=== PATIENT | male | born 1980 | race African-American/Black ===

== ENCOUNTER 2017-10-11 03:46 | Emergency (ER) | payer MEDICAID ==
[~2017-10-11 03:46] MED LIST: CEPH-571 PO; GUAI120015 PO; ONDA4TAB6 PO
== END 2017-10-11 04:18 | disposition left against medical advice (07) ==
LOC: ER 03:46
DX: Z53.21 Procedure and treatment not carried out due to patient leaving prior to being seen by health care provider (principal)

== ENCOUNTER 2019-11-12 08:45 | Emergency (ER) | payer SELFPAY ==
[~2019-11-12] VITALS: Ht 167.6 cm; Wt 97.2 kg
[2019-11-12 08:52] VITALS: BP 142/94
[2019-11-12 09:35] LABS: CLARITY,URINE CLEAR (Clear); COLOR,URINE YELLOW (Yellow); GLUCOSE, URINE NEGATIVE (Neg); KETONES,URINE NEGATIVE (Neg); LEUKOCYTE ESTERASE ,URINE NEGATIVE (Neg); NITRITES, URINE NEGATIVE (Neg); OCCULT BLOOD,URINE NEGATIVE (Neg); PH,URINE 5.5 (4.8-8.0); PROTEIN,URINE NEGATIVE (Neg); UA COLLECTION TYPE VOIDED; UROBILINOGEN,URINE 0.2 E.U/dL (0.2-1.0)
[2019-11-12] MEDS ORDERED: azithromycin 250mg tablet PO ONE (09:50)
[2019-11-12] MEDS ORDERED: CefTRIAXone 250MG IM Kit w/LIDOcaine IM ONE (09:50)
[2019-11-12] MEDS ORDERED: FLO0.4C PO (10:18)
== END 2019-11-12 10:32 | disposition left against medical advice (07) ==
LOC: ER 08:45
DX: R33.9 Retention of urine, unspecified (principal); R30.0 Dysuria; Z72.89 Other problems related to lifestyle; Z59.0 Homelessness; Z79.899 Other long term (current) drug therapy
CPT/HCPCS: 36415; 81003; 87491; 99284

== ENCOUNTER 2019-11-28 08:22 | Emergency (ER) | payer MEDICAID ==
[~2019-11-28] VITALS: Ht 167.6 cm; Wt 90.0 kg
[~2019-11-28 08:22] MED LIST changes: +FLO0.4C PO
[2019-11-28 08:38] VITALS: BP 146/93
--- NOTE | 2019-11-28 09:49 | NUR ---
BLADDER SCAN SHOWED 237ML RETAINED.
[2019-11-28 09:54] LABS: BASOPHILS % (AUTO) 0.6 % (0-1); EOSINOPHILS # (AUTO) 0.1 X10'3 (0-0.9); EOSINOPHILS % (AUTO) 1.2 % (0-6); HEMATOCRIT 40.9 % (42.0-52.0); HEMOGLOBIN 13.8 g/dl (14.0-17.9); LYMPHOCYTES # (AUTO) 1.4 X10'3 (1.1-4.8); LYMPHOCYTES % (AUTO) 29.8 % (21-51); MEAN CORPUSCULAR HEMOGLOBIN 31.6 PG (27.0-31.0); MEAN CORPUSCULAR HGB CONC 33.8 g/dL (33.0-36.5); MEAN CORPUSCULAR VOLUME 93.5 FL (78-98); MEAN PLATELET VOLUME 8.4 FL (7.4-10.4); MONOCYTES # (AUTO) 0.5 X10'3 (0-0.9); MONOCYTES % (AUTO) 11.2 % (2-12); NEUTROPHILS # (AUTO) 2.8 X10'3 (1.8-7.7); NEUTROPHILS % (AUTO) 57.2 % (42-75); PLATELET COUNT 252 X10'3 (140-440); RED BLOOD COUNT 4.38 X10'6 (4.70-6.10); RED CELL DISTRIBUTION WIDTH 12.7 % (11.5-14.5); WHITE BLOOD COUNT 4.8 X10'3 (4.5-11.0)
[2019-11-28 10:02] LABS: ALBUMIN 3.7 G/DL (3.4-5.0); ANION GAP 6 (8-16); BLOOD UREA NITROGEN 12 MG/DL (7-18); BUN/CREATININE RATIO 9.9 (5.4-32.0); CALCIUM 9.2 MG/DL (8.5-10.1); CHLORIDE 107 MMOL/L (99-107); CREATININE 1.21 MG/DL (0.60-1.10); GLUCOSE 101 MG/DL (70-104); POTASSIUM 3.4 MMOL/L (3.5-5.1); SODIUM 140 MMOL/L (135-145); TOTAL CARBON DIOXIDE 26.8 MMOL/L (24-32); eGFR 81 ML/MIN
[2019-11-28] MEDS ORDERED: FLO0.4C PO (10:26)
== END 2019-11-28 10:55 | disposition home or self-care (01) ==
LOC: ER 08:22
DX: R33.9 Retention of urine, unspecified (principal); Z59.0 Homelessness; Z79.2 Long term (current) use of antibiotics; Z79.899 Other long term (current) drug therapy
CPT/HCPCS: 36415; 80048; 85025; 99284

== ENCOUNTER 2022-01-28 07:51 | Emergency (ER) | payer MEDICAID ==
[~2022-01-28] VITALS: Ht 167.6 cm; Wt 109.1 kg
[~2022-01-28 07:51] MED LIST changes: -FLO0.4C PO
[2022-01-28] MEDS ORDERED: ketorolac trometh. 30mg/ml inj. IM ONE (09:20)
[2022-01-28] MEDS ORDERED: TETanus/Pertussis (Acell)/Diphther VAC/PF (Tdap-Adult) 0.5ml syringe IMVAC ONE (09:20)
[2022-01-28] MEDS ORDERED: sulfamethoxazole/trimethoprim DS (800/160mg) tablet PO ONE (10:10)
[2022-01-28] MEDS ORDERED: HYDROcodone/acetaminophen 10/325mg tab PO ONE (10:10)
[2022-01-28] MEDS ORDERED: IBUP-1986 PO (10:13)
[2022-01-28] MEDS ORDERED: SULF1TAB49 PO (10:13)
[2022-01-28 10:39] VITALS: BP 141/91
== END 2022-01-28 10:56 | disposition home or self-care (01) ==
LOC: ER 07:51
DX: S01.112A Laceration without foreign body of left eyelid and periocular area, initial encounter (principal); R42 Dizziness and giddiness; R51.9 Headache, unspecified; Z72.89 Other problems related to lifestyle; Z20.3 Contact with and (suspected) exposure to rabies; Z59.00 Homelessness unspecified; Z79.2 Long term (current) use of antibiotics; Z79.899 Other long term (current) drug therapy; V19.9XXA Pedal cyclist (driver) (passenger) injured in unspecified traffic accident, initial encounter; Y93.89 Activity, other specified; Y92.89 Other specified places as the place of occurrence of the external cause; Y99.8 Other external cause status
CPT/HCPCS: 12014; 70450; 90471; 90715; 96372; 99284; J1885

== ENCOUNTER 2022-04-16 22:10 | Emergency (ER) | payer MEDICAID ==
[~2022-04-16] VITALS: Ht 170.2 cm; Wt 102.3 kg
[~2022-04-16 22:10] MED LIST changes: -CEPH-571 PO; -GUAI120015 PO; +IBUP-1986 PO; -ONDA4TAB6 PO
[2022-04-16] MEDS ORDERED: famotidine 20mg tablet PO ONE (22:55)
[2022-04-16] MEDS ORDERED: ondansetron 4mg rapidly disintigrating tab PO ONE (22:55)
[2022-04-16] MEDS ORDERED: ONDA8TAB13 PO (23:49)
[2022-04-16] MEDS ORDERED: FAMO-128 PO (23:49)
[2022-04-17 00:07] VITALS: BP 146/84
== END 2022-04-17 00:08 | disposition home or self-care (01) ==
LOC: ER 22:11
DX: K29.70 Gastritis, unspecified, without bleeding (principal); Z59.00 Homelessness unspecified
CPT/HCPCS: 99283

== ENCOUNTER 2022-04-20 04:37 | Emergency (ER) | payer MEDICAID ==
[~2022-04-20] VITALS: Ht 170.2 cm; Wt 95.5 kg
[~2022-04-20 04:37] MED LIST changes: +FAMO-128 PO; +ONDA8TAB13 PO
[2022-04-20 04:52] VITALS: BP 138/91
== END 2022-04-20 06:28 | disposition left against medical advice (07) ==
LOC: ER 04:38
DX: R10.9 Unspecified abdominal pain (principal); Z53.21 Procedure and treatment not carried out due to patient leaving prior to being seen by health care provider

== ENCOUNTER 2022-07-12 09:41 | Emergency (ER) | payer MEDICAID ==
[~2022-07-12] VITALS: Ht 167.6 cm; Wt 110.0 kg
[2022-07-12 09:45] VITALS: BP 134/76
[2022-07-12] MEDS ORDERED: CEPH-585 PO (09:50)
== END 2022-07-12 09:54 | disposition home or self-care (01) ==
LOC: ER 09:42
DX: S81.801A Unspecified open wound, right lower leg, initial encounter (principal); L98.8 Other specified disorders of the skin and subcutaneous tissue; Z59.00 Homelessness unspecified; X58.XXXA Exposure to other specified factors, initial encounter; Y93.89 Activity, other specified; Y92.89 Other specified places as the place of occurrence of the external cause; Y99.8 Other external cause status
CPT/HCPCS: 99283

== ENCOUNTER 2022-08-04 07:16 | Emergency (ER) | payer MEDICAID ==
[~2022-08-04] VITALS: Ht 170.2 cm; Wt 100.0 kg
[~2022-08-04 07:16] MED LIST changes: +CEPH-585 PO
[2022-08-04 08:38] VITALS: BP 161/99
[2022-08-04] MEDS ORDERED: TETanus/Pertussis (Acell)/Diphther VAC/PF (Tdap-Adult) 0.5ml syringe IMVAC ONE (10:50)
[2022-08-04] MEDS ORDERED: LIDOcaine 1% w/EPI 1:100,000 30ml vial (MDV) IJ ONE (10:50)
[2022-08-04] MEDS ORDERED: CEPH-585 PO (13:26)
== END 2022-08-04 13:36 | disposition home or self-care (01) ==
LOC: ER 07:16
DX: S61.412A Laceration without foreign body of left hand, initial encounter (principal); Z59.00 Homelessness unspecified; W45.8XXA Other foreign body or object entering through skin, initial encounter; Y93.89 Activity, other specified; Y92.89 Other specified places as the place of occurrence of the external cause; Y99.8 Other external cause status
CPT/HCPCS: 12002; 90471; 90715; 99283; A6449

== ENCOUNTER 2022-12-25 23:35 | Emergency (ER) | payer MEDICAID ==
[~2022-12-25] VITALS: Ht 172.7 cm; Wt 100.0 kg
[2022-12-25 23:53] VITALS: BP 157/88
== END 2022-12-26 00:14 | disposition home or self-care (01) ==
LOC: ER 23:36
DX: R20.8 Other disturbances of skin sensation (principal)
CPT/HCPCS: 99281